=== PATIENT | female | born 1975 ===

== ENCOUNTER 2021-07-16 21:07 | Emergency (ER) | payer OTHER ==
[~2021-07-16] VITALS: Ht 157.5 cm; Wt 63.5 kg
[~2021-07-16 21:07] MED LIST: FOLIC ACID PO; FOLIC ACID0.4 MG PO; PRENA-CAP CAPSU1 CAP PO; PRENATAL1 TAB PO; [UNRECOGNIZED DRUG - OTHER] PO
== END 2021-07-17 00:34 | disposition home or self-care (01) ==
LOC: ER 21:07
DX: M25.561 Pain in right knee (principal); Z91.81 History of falling